=== PATIENT | female | born 1945 | race Caucasian/White ===

== ENCOUNTER 2020-06-07 15:34 | Outpatient (CLI) | payer OTHER, SELFPAY ==
--- NOTE | ~2020-06-07 | XR_ITS ---
EXAMINATION: XR chest 2V DATE: 06/07/2020 15:56 INDICATION: Cough and dyspnea. TECHNIQUE: Frontal and lateral views of the chest were obtained. COMPARISON: Chest 2 views 08/26/2019 FINDINGS: The chest demonstrates clear lungs without pneumonia, pleural effusion, or pneumothorax. Th e heart size is normal. There is a large hiatal hernia. Bilateral breast implants are noted. There ar e electrodes overlying the cervical and thoracic spine. There are changes of anterior fusion procedur e in lumbar spine. IMPRESSION: 1. Large hiatal hernia. Reviewed, dictated and finalized at location A. NT MASON IMPRESSION: 1. Large hiatal hernia.
== END 2020-06-07 15:35 | disposition home or self-care (01) ==
PROVIDERS: PCP Family Medicine; Visit Provider Family Medicine
DX: R06.09 Other forms of dyspnea (principal); R05 Cough; K44.9 Diaphragmatic hernia without obstruction or gangrene
CPT/HCPCS: 71046

== ENCOUNTER 2020-10-18 11:01 | Outpatient (CLI) | payer OTHER, MEDICARE, SELFPAY | END 2020-10-18 11:02 | disposition home or self-care (01) | LOC: ANHCOVIDVC 11:01 | PROVIDERS: PCP Family Medicine | DX: Z23 Encounter for immunization (principal) | CPT/HCPCS: 0001A; 91300 ==

== ENCOUNTER 2020-11-08 11:10 | Outpatient (CLI) | payer OTHER, MEDICARE, SELFPAY | END 2020-11-08 11:11 | disposition home or self-care (01) | LOC: ANHCOVIDVC 11:10 | PROVIDERS: PCP Family Medicine | DX: Z23 Encounter for immunization (principal) | CPT/HCPCS: 0002A; 91300 ==

== ENCOUNTER 2022-11-13 11:27 | Emergency (ER) | payer OTHER, SELFPAY ==
--- NOTE | ~2022-11-13 | XR_ITS ---
EXAMINATION: XR wrist LT min 3V DATE: 11/13/2022 11:58 INDICATION: Left wrist injury and pain. TECHNIQUE: 4 views of left wrist were obtained. COMPARISON: None. FINDINGS: Bone alignment is normal. No fracture. There is moderate osteoarthritis of triscaphe joint and severe osteoarthritis of first carpometacarpal joint. Osteopenia is noted. IMPRESSION: 1. Polyarticular osteoarthritis. Reviewed, dictated and finalized at location A.
[2022-11-13 11:30] VITALS: BP 136/78; PULSE 79; RESP 20; TEMP 36.2; O2SAT 98
--- NOTE | 2022-11-13 11:34 | ED.UPPEXIN ---
HPI - Extremity Injury (Upper) General Chief Complaint: Extremity Injury, Upper Stated Complaint: Left Wrist Injury Source: patient and RN notes reviewed History of Present Illness HPI narrative: 77-year-old female presents urgent care with complaints of left wrist pain. Patient states on Sunday she was getting off a couch when she pushed with her left hand and her knee popped. Patient denies any pain at that time. Patient states on Sunday she mopped the kitchen floor without issue but yesterday woke up with pain in her left wrist. Patient applied ice yesterday. Patient states she had some numbness and tingling to her left fingers with ice application. Denies any other injury. Patient denies any chest pain, shortness of breath, or vomiting. Some parts of this dictation were generated by voice recognition software and may contain typographical and/or grammatical inaccuracies. Related Data Home Medications Medication Instructions Recorded Confirmed aspirin 81 mg tablet,delayed 81 mg PO DAILY 08/26/19 09/12/22 release Allergies Allergy/AdvReac Type Severity Reaction Status Date / Time codeine Allergy Unknown Nausea Verified 09/12/22 13:07 meperidine Allergy Unknown Nausea and Verified 09/12/22 13:07 Vomiting MEPERIDINE HCL Allergy Severe NAUSEA, Uncoded 09/12/22 13:07 VOMITING Review of Systems Review of Systems: Pertinent positives and pertinent negatives per HPI. [facility]LY [facility] Past Medical History Medical History Anemia Asthma Depression GERD (gastroesophageal reflux disease) HLD (hyperlipidemia) HTN (hypertension) Hypothyroidism Major depression, recurrent Surgical History Surgical History H/O breast augmentation History of back surgery x 3 History of bladder suspension procedure History of hysterectomy Family History Family History Mother Family history of Alzheimer's disease Sibling Family history of diabetes mellitus in first degree relative Family history of coronary artery disease Family history of malignant neoplasm of esophagus Father Family history of coronary artery disease Social History Social History Years smoked: 2 Smoking status: Never smoker Tobacco type: cigarettes Second hand tobacco smoke exposure: No Smoking end date: 01/01/72 Alcohol intake: never Substance use: never Substance use type: does not use Living arrangements: with family Occupation/Education: retired Gender identity (if verbalized by the patient): Female Comments At the time of my signature, I reviewed and agree with the nursing past medical, surgical, social, and family history. There is no relevant family history pertinent to the patient complaint. Exam Narrative: GENERAL: This is a well-nourished, well-developed patient, in no apparent distress. HEAD: normocephalic, atraumatic. EYES: Sclera clear/white. Vision is grossly intact. EARS: External ears normal, auditory canals clear and without drainage. Hearing grossly intact. NOSE: External nose normal with no obvious nasal discharge, nares without redness, no rhinorrhea. THROAT: Mucous membranes moist, posterior pharynx clear. NECK: Neck supple, non-tender without lymphadenopathy, masses or thyromegaly. CARDIOVASCULAR: Regular rate RESPIRATORY: No respiratory distress GASTROINTESTINAL: Abdomen soft, non-tender, nondistended. Bowel sounds are active. No hepato-splenomegaly, or palpable masses. No guarding. SKIN: warm, intact with no suspicious lesions or rash, good texture and turgor. NEURO: awake, alert, and oriented to person, place and time. There were no obvious focal neurologic abnormalities. EXTREMITIES: Left wrist noted to be mildly edematous and slightly tender on the ulnar side. Course Course Level of C
== END 2022-11-13 12:27 | disposition home or self-care (01) ==
PROVIDERS: Emergency Provider Nurse Practitioner Family; PCP Family Medicine
DX: S63.502A Unspecified sprain of left wrist, initial encounter (principal); S66.912A Strain of unspecified muscle, fascia and tendon at wrist and hand level, left hand, initial encounter; X50.0XXA Overexertion from strenuous movement or load, initial encounter; J45.909 Unspecified asthma, uncomplicated; K21.9 Gastro-esophageal reflux disease without esophagitis; E78.5 Hyperlipidemia, unspecified; I10 Essential (primary) hypertension; E03.9 Hypothyroidism, unspecified; Z79.82 Long term (current) use of aspirin; Z87.891 Personal history of nicotine dependence
CPT/HCPCS: 73110; 99213; G0463

== ENCOUNTER 2024-09-14 13:25 | Emergency (ER) | payer OTHER, SELFPAY ==
--- OUTSIDE RECORDS SUMMARY | 2024-09-14 13:27 | XMS_ITS | Referral Summary ---
Author Organization [facility] Address [address] [place] [address] Care Team Providers Care Bail Attacher Name Role Phone Fran Vargas MD Primary Care Provider Nhi Rubio RN Unavailable Unavailable Edilia Corbin RN Unavailable Marylou vailable Allergies Active Allergy Reactions Criticality Noted Date Comments Meperidine Medications aspirin 81 mg tablet Take 1 tablet (81 mg total) by mouth daily Active venlafaxine (EFFEXOR) 75 mg tablet Take 75 mg by mouth 2 (two) times a day. Active hydroCHLOROthia zide (HYDRODIURIL) 25 mg tablet Take 1 tablet (25 mg total) by mouth daily Active levothyroxine sodium (TIROSINT) 25 mcg capsule Take 1 capsule (25 mcg total) by mouth applied exercise physiologist before breakfast Active metoprolol (LOPRESSOR) 50 mg tablet Take 1 tablet (50 mg total) by mouth daily Active omeprazole (PriLOSEC) 40 mg capsule Take 1 capsule (40 mg total) by mouth daily Active lovastatin (MEVACOR) 40 mg tablet Take 1 tablet (40 mg total) by mouth nightly Active amitriptyline (ELAVIL) 25 mg tablet Take 1 tablet (25 mg total) by mouth nightly Active celecoxib (CeleBREX) 100 mg capsuleIndicati ons:Osteoarthri tis Take 1 capsule (100 mg total) by mouth 2 (two) times a day. 60 capsule 2 9 Active FLUoxetine (PROzac) 20 mg capsule Take by mouth daily 2 Active predniSONE (DELTASONE) 10 mg tabletIndicatio ns:Swelling of right hand Take 4 tablets days 1 & 2, take 3 tablets days 3 & 4, take 2 tablets days 5 & 6, take 1 tablet days 7-10 22 tablet 4 Active Active Problems Problem Noted Date Diagnosed Date Hip pain, acute, right 06/03/2019 Myalgia 08/28/2018 Spinal stenosis of lumbar re gion with neurogenic claudication 07/11/2017 Lumbosacral spondylosis without myelopathy 07/11 Postlaminectomy syndrome, lumbar 07/11/2017 Radiculopathy, lumbosacral region 07/11/2017 Thoracic spine pain 07/11/2017 Chronic pain syndrome 04/27/2017 Somatic symptom disorder, pe rsistent, severe, with predominant pain 04/27/2017 Social History Tobacco Use Types Packs/Day Years Used Date Smoking Tobacco: Never Smokeless Tobacco: Never Alcohol Use Standard Drinks/Week Comments No 0 (1 standard drink = 0.6 oz pur e alcohol) Comments No Sex and Gender Information Value Date Recorded Sex Assigned at Not on file 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 Gender Identity Not on file Sexual Orientation Not on file Last Filed Vital Signs Vital Sign Reading Time Taken Comments Blood Pressure 128/66 05/10/2024 4:00 PM CDT Pulse 82 05/10/2024 4:00 PM CDT Temperature 37.2 C (98.9 F) 05/10/2024 4:00 PM CDT Respiratory Rate 18 05/10/2024 4:00 PM CDT Oxygen Saturation 96% 05/10/2024 4:00 PM CDT Inhaled Oxygen Concentration - - Weight 85.5 kg (188 lb 6.4 oz) 05/10/2024 4:00 P M CDT Height 167.6 cm (5' 6 ) 06/03/2019 1:05 PM CDT Body Mass Index 30.41 06/03/2019 1:05 PM CDT Plan of Treatment Not on file Medical Devices Implanted Type Area Tracing Lathe Set Up Operator Device Identifier Shelf Expiration Date Model / Serial / Lot [employer] 1192 Gunter-Lock Gueydan Lead - [id number] Implanted:Qty: 2 on 04/11/2018 by Sathish Winslow MD at [facility] N/A: Back [employer] 09/17/2019 1192 / / [id number] [employer] 3186ans Octrode 60cm 8 Electrode Lead Percutaneous Kit Neurostimulator - [id number] - [id number] Implanted:Qty: 1 on 04/11/2018 by Sathish Winslow MD at [facility] N/A: Back [employer] 12/19/2019 [id number] / [id number] / [employer] 3186ans Octrode 60cm 8 Electrode Lead Percutaneous Kit Neurostimulator - [id number] - [id number] Implanted:Qty: 1 on 04/11/2018 by Sathish Winslow MD at [facility] N/A: Back [employer] 12/19/2019 [id number] / [id number] / Generator Neurostimulator 4.95cm X 5.55cm Proclaim Elite Implanted:Qty: 1 on 04/11/2018 by Sathish Winslow MD at [facility] N/A: Back [employer] [id number] 12/07/2019 [id number] LSYS / [id number] / Insurance [facility] Care Teams Bail Attacher Relationship Specialty Start Date End Date Fran Vargas MD [address] [facility] [address] [place] [address] PCP - General Family Medicine 07/11/17 Nhi Rubio, RN Registered Nurse 07/11/17 Edilia Corbin, RN Registered Nurse 08/28/18
--- OUTSIDE RECORDS SUMMARY | 2024-09-14 13:27 | XMS_ITS | Clinical Summary ---
Author Organization [facility] Address [address] [place] [address] Phone Care Team Providers Care Flight Steward Name Role Phone Fran Vargas MD Primary Care Provider Active Problems Problem Noted Date Diagnosed Date Chronic pain syndrome 04/27/2017 Somatic symptom disorder, pe rsistent, severe, with predominant pain 04/27/2017 Social History Tobacco Use Types Packs/Day Years Used Date Smoking Tobacco: Never Assessed Comments Unknown Sex and Gender Information Value Date Recorded Sex Assigned at Not on file Legal Sex Female 7:52 PM CDT Gender Identity Not on file Sexual Orientation Not on file Plan of Treatment Health Maintenance Due Date Last Done Comments DEXA Bone Density 1945 Hepatitis C Virus (HCV) Screening 1945 TdaP Immunization 1945 Pneumococcal Immunization (5 0+ years) (1 of 1 - PCV) 1996 Zoster Immunization (1 of 2) 1996 Respiratory Syncytial Virus (RSV) Immunization (Adult) (1 - 1-dose 75+ series) 2021 Influenza Immunization (#1) 2024 SARS-COV-2 Immunization ( season) 2024 Hepatitis B Immunization Aged Out No longer eligible based on patient's age to complete this topic Meningococcal Immunization (ACWY) Aged Out No longer eligible based on patient's age to complete this topic Rotavirus Immunization Aged Out No lo nger eligible based on patient's age to complete this topic Insurance MEDICARE C [employer] Care Teams Flight Steward Relationship Specialty Start Date End Date Fran Vargas MD [address] [facility] [address] [place] [address] PCP - General Family Medicine 03/29/17
--- OUTSIDE RECORDS SUMMARY | 2024-09-14 13:27 | XMS_ITS | Clinical Summary ---
Author Organization [facility] Address [address] [place] [address] Care Team Providers Care Spiral Winding Machine Helper Name Role Phone Fran Vargas MD Primary [...] 1 capsule (25 mcg total) by mouth enterprise software developer before breakfast Active metoprolol (LOPRESSOR) 50 mg [...] pe rsistent, severe, with predominant pain 04/27/2017 Surgical History Surgery Date Site/Laterality Comments BACK SURGERY HYSTERECTOMY SPINE SURGERY lumbar fusion APPENDECTOMY COLONOSCOPY DILATION AND CURETTAGE OF UTERUS x2 MULTIPLE TOOTH EXTRACTIONS to prepare for dentures BLADDER SURGERY mesh for prolapse Medical History Medical History Date Comments HTN (hypertension) HLD (hyperlipidemia) Asthma Arthritis Depression Hypothyroidism GERD (gastroesophageal reflux disease) PONV (postoperative nausea and vomiting) Chronic back pain Family History Medical History Relation Name Comments Diabetes Brother 1 Binh Heart disease Brother 1 Binh Obesity Brother 1 Binh Diabetes Brother 2 Miguel Angel Atrial fibrillation Brother 3 Champ Cancer Brother 4 Miguel Ángel esophageal canc er Heart disease Father Alzheimer's disease Mother Arthritis Sister Atrial fibrillation Sister Fibromyalgia Sister Relation Name Status Comments Brother 1 Binh Brother 2 [place] Alive Brother 3 Champ Alive Brother 4 Miguel Ángel Father Mother Sister Alive Social History Tobacco Use Types Packs/Day Years Used Date Smoking Tobacco: Never Smokeless Tobacco: Never Alcohol Use Standard Drinks/Week Comments No 0 (1 standard drink = 0.6 oz pur e alcohol) Comments No Sex and Gender Information Value Date Recorded Sex Assigned at Not on file 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 Gender Identity Not on file Sexual Orientation Not on file Obstetrics History Last Filed Vital Signs Vital Sign Reading [...] 06/03/2019 1:05 PM CDT Plan of Treatment Health Maintenance Due Date Last Done Comments Depression Screening 1945 Hepatitis C Screening 1945 Osteoporosis Screening-Bone Density Scan 1945 Hepatitis B Screening 1964 Zoster Vaccine (1 of 2) 1996 Pneumococcal vaccine 65+ (1 of 1 - PCV) 2011 Well Visit 65+ 2011 Fall Risk Assessment 02/15/2023 02/15/2022 Influenza Vaccine (#1) 2024 DTaP/Tdap/Td Vaccine (2 - Td or Tdap) 08/15/202405/2015 Medical Devices Implanted Type Area Project Admin Device Identifier Shelf Expiration Date Model / Serial / Lot [employer] 1192 Gunter-Lock [place] Lead - [id number] Implanted:Qty: 2 on 04/11/2018 by Sathish Winslow MD at [facility] N/A: Back [employer] 09/17/2019 1192 / / [id number] [employer] 3186ans Octrode 60cm 8 Electrode Lead Percutaneous Kit Neurostimulator - [id number] - [id number] Implanted:Qty: 1 on 04/11/2018 by Sathish Winslow MD at [facility] N/A: Back [employer] 12/19/2019 [id number] / [id number] / [employer] 3186ans Octrode 60cm 8 Electrode Lead Percutaneous Kit Neurostimulator - [id number] - [id number] Implanted:Qty: 1 on 04/11/2018 by Sathish Winslow MD at [facility] N/A: Back [employer] 12/19/2019 [id number] / [id number] / Generator Neurostimulator 4.95cm X 5.55cm [employer] Elite Implanted:Qty: 1 on 04/11/2018 by Sathish Winslow MD at [facility] N/A: Back [employer] [id number] 12/07/2019 3660CONTR LSYS / [id number] / Insurance [facility] Member Subscriber Plan / Payer (Ef fective 2011-Present) Name:ElizondoElaine Chastity Relation to Subscriber:Self Name:Elaine Elizondo Payer ID:[id number] (NAIC) Type:MEDICARE RISK OTHER Address: [address] [place] [id number] [facility] Member Subscriber Plan / Payer (Ef fective 2011-Present) Name:Elaine Elizondo Relation to Subscriber:Self Name:Elaine Elizondo Payer ID:[id number] (NAIC) Type:MEDICARE RISK OTHER Address: [address] [place] [phone] Care Teams Spiral Winding Machine Helper Relationship Specialty Start Date End Date Fran Vargas MD [address] [facility] [address] [place] [address] PCP - General Family Medicine 07/11/17 Nhi Rubio, RN Registered Nurse 07/11/17 Edilia Corbin, RN Registered Nurse 08/28/18
[2024-09-14 13:30] VITALS: BP 128/65; PULSE 121; RESP 20; TEMP 36.8; O2SAT 97
--- NOTE | 2024-09-14 13:31 | ED.URI ---
HPI - URI/Sore Throat General Chief Complaint: Upper Respiratory Infection Stated Complaint: flu symptoms Time Seen by Provider: 09/14/24 13:31 Source: patient, RN notes reviewed and old records reviewed Mode of arrival: ambulatory Limitations: no limitations History of Present Illness HPI Narrative: patient presents accompanied by her daughter who is also sick. Patient reports that she has been feeling unwell for couple days with flu-like symptoms. She states that she has not taken any medication for her symptoms because she did not feel like getting out of bed. She also reports that she did not take any of her routine medications for the same reason. She is not in any distress. Related Data Home Medications ?Medication ?Instructions ?Recorded ?Confirmed ?Last Taken ?Type aspirin 81 mg tablet,delayed 81 mg PO DAILY 08/26/19 09/03/24 Unknown History release Allergies Allergy/AdvReac Type Severity Reaction Status Date / Time codeine Allergy Unknown Nausea Verified 09/14/24 13:39 meperidine Allergy Unknown Nausea and Verified 09/14/24 13:39 Vomiting MEPERIDINE HCL Allergy Severe NAUSEA, Uncoded 08/22/24 08:47 VOMITING Review of Systems Review of Systems: All systems reviewed & are unremarkable except as noted in HPI and below Constitutional: Constitutional: Reports no additional constitutional complaints, Reports body ache(s), Reports chills, Reports fever(s), Reports headache(s) and Reports lethargy ENT: Reports system reviewed and no additional complaints, except as documented, Reports nasal congestion and Reports nasal discharge Cardiovascular: Cardiovascular: Reports no additional cardiovascular complaints Respiratory: Respiratory: Reports no additional respiratory complaints and Reports cough Gastrointestinal: Gastrointestinal: Reports no additional gastrointestinal complaints [facility] Past Medical History Medical History Major depression, recurrent Anemia Depression Asthma HLD (hyperlipidemia) GERD (gastroesophageal reflux disease) Hypothyroidism HTN (hypertension) Surgical History Surgical History History of bladder suspension procedure History of back surgery x 3 H/O breast augmentation History of hysterectomy Family History Family History Mother Family history of Alzheimer's disease Sibling Family history of diabetes mellitus in first degree relative Family history of coronary artery disease Family history of malignant neoplasm of esophagus Father Family history of coronary artery disease Social History Social History Years smoked: 2 Smoking status: Never smoker Tobacco type: cigarettes Second hand tobacco smoke exposure: No Smoking end date: 08/06/71 Alcohol intake: never Substance use: never Substance use type: does not use Living arrangements: with family Occupation/Education: retired Gender identity (if verbalized by the patient): Female Comments At the time of my signature, I reviewed and agree with the nursing past medical, surgical, social, and family history. There is no relevant family history pertinent to the patient complaint. Exam Const: General: cooperative, no acute distress, alert and awake Orientation/consciousness: oriented to person, oriented to place and oriented to time HENMT: Head: normal to inspection Ears: TM's normal bilaterally Resp: Effort & Inspection: normal respiratory effort and able to speak in complete sentences Auscultation: clear to auscultation bilaterally, no crackles, no rales, no rhonchi and no wheezes Cardio: Palpation: normal PMI Rate: regular rate Rhythm: regular rhythm Heart sounds: S1 normal heart sound present and S2 normal heart sound present Neuro: General: oriented to person, oriented to place and oriented to time Cranial nerves: Yes CN's II-XII intact bilaterally Psych: Appearance: grossly normal Thought process: Normal thought process present Insight: Good insight present (Psych) Judgement: Good judgement present (Psych) Course Course Level of Care: Express Care Visit Vital Signs Vital signs: Reviewed MDM - URI/Sore Throat MDM Narrative Medical decision making narrative: Positive influenza. Patient has not been treating her symptoms. Tamiflu was prescribed. Patient is nontoxic appearing today, stable for discharge home. The importance of taking all medications as prescribed was discussed with patient at length. Emergency department precautions discussed as well. Discharge instructions reviewed with patient, as well as provided in writing per nursing staff. The instructions also include specific and strict return/GO TO THE ER as well as f/u information. All questions have been answered, and the patient deny any further questions with discharge and discharge plan. Some parts of this dictation were generated by voice recognition software and may contain typographical and/or grammatical inaccuracies. Differential Diagnosis Differential diagnosis: Likely upper respiratory infection, otitis media, viral infection and influenza Medical Records Attestation: I reviewed the patient's medical records. Lab Data Attestation: I reviewed the patient's lab results. Discharge Plan Discharge Clinical Impression: Influenza Patient Disposition: Home, Self-Care Condition: Stable Instructions: Antibiotic Form, Influenza (ED) Additional Instructions: take medications as prescribed. Follow-up with primary care provider. Emergency department for new or worse symptoms Patient Language: Spanish Prescriptions: New oseltamivir [Tamiflu] 75 mg capsule 75 mg PO Q12H 5 Days Qty: 10 0RF No Action aspirin 81 mg tablet,delayed release (DR/EC) 81 mg PO DAILY ferrous sulfate 325 mg (65 mg iron) tablet 325 mg PO DAILY Qty: 90 1RF fluticasone propion-salmeterol [Wixela Inhub] 500-50 mcg/dose blister with device 1 inh inhalation Q12H Qty: 60 0RF albuterol sulfate [ProAir HFA] 90 mcg/actuation HFA aerosol inhaler 1 puff INHALATION Q4H PRN (Reason: shortness of breath or wheezing) Qty: 8 2RF levothyroxine 25 mcg tablet 25 mcg PO DAILY Qty: 90 2RF hydrochlorothiazide 25 mg tablet See Rx Instructions .ROUTE .COMPLEX Qty: 90 2RF Dose Instruction: TAKE 1 TABLET BY MOUTH EVERY DAY Rx Instructions: TAKE 1 TABLET BY MOUTH EVERY DAY lovastatin 40 mg tablet 40 mg PO QPM Qty: 90 2RF omeprazole 40 mg capsule,delayed release(DR/EC) 40 mg PO DAILY Qty: 90 3RF fluoxetine [Prozac] 20 mg capsule 20 mg PO DAILY Qty: 90 2RF metoprolol succinate 50 mg tablet extended release 24 hr See Rx Instructions .ROUTE .COMPLEX Qty: 90 2RF Dose Instruction: TAKE ONE TABLET BY MOUTH ONCE DAILY Rx Instructions: TAKE ONE TABLET BY MOUTH ONCE DAILY amitriptyline 50 mg tablet 50 mg PO DAILY Qty: 90 2RF Follow-up/Referrals: Fran Vargas MD [Primary Care Provider] - 1 Week Time of Disposition: 14:01
[2024-09-14 14:00] LABS: EDCOVIDSCREEN Negative (Negative); EDINFLUASCREEN Positive (Negative); EDINFLUBSCREEN Negative (Negative)
== END 2024-09-14 14:06 | disposition home or self-care (01) ==
PROVIDERS: Emergency Provider Nurse Practitioner Family; PCP Family Medicine
DX: J10.1 Influenza due to other identified influenza virus with other respiratory manifestations (principal); Z20.822 Contact with and (suspected) exposure to COVID-19; I10 Essential (primary) hypertension; E03.9 Hypothyroidism, unspecified; E78.5 Hyperlipidemia, unspecified; K21.9 Gastro-esophageal reflux disease without esophagitis; J45.909 Unspecified asthma, uncomplicated; D64.9 Anemia, unspecified; F33.9 Major depressive disorder, recurrent, unspecified; Z79.82 Long term (current) use of aspirin; R69 Illness, unspecified; Z87.891 Personal history of nicotine dependence
CPT/HCPCS: 87426; 87804; 99213; G0463

== ENCOUNTER 2025-06-18 13:45 | Outpatient (CLI) | payer OTHER, SELFPAY ==
--- NOTE | ~2025-06-18 | US_ITS ---
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 Findings: Correlating with the palpable area there is a complex focus measuring 1.7 x 0.5 x 1.4 cm with a prominent hilum, no abnormal flow. Incidental note made of multiple thyroid nodules incompletely characterized. IMPRESSION: 1. Nonspecific prominent lymph node. Follow-up suggested to assess stability or resolution. 2. Thyroid nodules. Thyroid ultrasound recommended Reviewed, dictated and finalized at location P. P METAL PROCESSING WORKER
--- NOTE | 2025-06-18 14:15 | ECHO_ITS ---
Patient Info Name: Elaine Elizondo Age: 79 years : 1945 Gender: Female Ht: 67 in Wt: 181 lbs BSA: 1.99 m2 HR: 75 bpm BP: 101 / 73 mmHg Technical Quality: Good Exam Date: 06/18/2025 2:21 PM Patient Status: O Admit Date: 06/18/2025 Exam Type: CA echo doppler color flow Complete two-dimensional, color flow and Doppler transthoracic echocardiogram is performed. Staff Referring Physician: Alexis Haywood Lead Pl Sql Developer: Saadia Matias Attending Provider: Alexis Haywood Summary 1. Complete two-dimensional, color flow and Doppler transthoracic echocardiogram is performed. 2. Left ventricular chamber dimension is normal. 3. Left ventricular systolic function is normal, estimated at 60-65. 4. There is mild concentric increased left ventricular wall thickness. 5. The left ventricular diastolic function is abnormal. 6. E/e' 13 is mildly elevated. 7. There is mild tricuspid valve regurgitation. 8. No pulmonary hypertension, estimated pulmonary arterial systolic pressure is 21 mmHg. Left Ventricle E/e' 13 is mildly elevated. Left ventricular chamber dimension is normal. Left ventricular systolic function is normal, estimated at 60-65. There is mild concentric increased left ventricular wall thickness. The left ventricular diastolic function is abnormal. Right Ventricle Right ventricular chamber dimension is normal. Right ventricular systolic function is normal and with normal TAPSE 2.2 cm. Left Atria Left atrial chamber dimension is normal. Right Atria Right atrial chamber dimension is normal. Aortic Valve The aortic valve is trileaflet. There is no aortic valve stenosis. There is no aortic valve regurgitation. Pulmonic Valve There is no pulmonic regurgitation. Mitral Valve There is no mitral valve stenosis. There is no mitral valve regurgitation. Tricuspid Valve There is mild tricuspid valve regurgitation. No pulmonary hypertension, estimated pulmonary arterial systolic pressure is 21 mmHg. Pericardium/Pleural There is no pericardial effusion. Inferior Vena Cava Normal inferior vena cava with >50% collapse upon inspiration consistent with normal right atrial pressure, 5 mmHg. Aorta The aortic root size at the sinus of Valsalva is normal. Left Ventricular Outflow Tract Name Value Normal LVOT 2D LVOT Diameter 2.0 cm LVOT Doppler LVOT Peak Velocity 119 cm/s LVOT Peak Gradient 6 mmHg LVOT Mean Gradient 3 mmHg LVOT VTI 29 cm LVOT Stroke Volume 92 ml LVOT CO 6.8 l/min LVOT CI 3.4 l/min/m2 Pulmonic Valve Name Value Normal RVOT Doppler RVOT Peak Velocity 97 cm/s RVOT Peak Gradient 4 mmHg PV Doppler PV Peak Velocity 152 cm/s PV Peak Gradient 9 mmHg Mitral Valve Name Value Normal MV Diastolic Function MV E Peak Velocity 95 cm/s MV A Peak Velocity 89 cm/s MV E/A 1.1 MV Decel Time (PW) 186 ms MV Annular TDI MV E/e' (Septal) 14.0 MV E/e' (Lateral) 13.1 MV E/e' (Average) 13.5 Tricuspid Valve Name Value Normal TV Regurgitation Doppler TR Peak Velocity 201 cm/s TR Peak Gradient 16 mmHg Estimated PAP/RSVP RA Pressure 5 mmHg <=5 PA Systolic Pressure 21 mmHg <36 RV Systolic Pressure 21 mmHg <36 Aortic Valve Name Value Normal AV Doppler AV Peak Velocity 168 cm/s AV Peak Gradient 11 mmHg AV Area (Cont Eq Jos) 2.3 cm2 AV DI (Jos) 0.71 AV Regurgitation 2D LVOT Area 3.2 cm2 Ventricles Name Value Normal LV Dimensions 2D/MM IVS Diastolic Thickness (2D) 1.2 cm 0.6-1.0 LVID Diastole (2D) 4.3 cm 3.8-5.2 LVIW Diastolic Thickness (2D) 1.0 cm 0.6-0.9 LVID Systole (2D) 2.6 cm 2.2-3.5 LVOT Diameter 2.0 cm LV Mass (2D Cubed) 164.98 g 67.00-162.00 LV Mass Index (2D Cubed) 83 g/m2 43-95 Relative Wall Thickness (2D) 0.49 <=0.42 LV Fractional Shortening/Ejection Fraction 2D/MM LV Fractional Shortening (2D) 39 % 27-45 LV EF (2D Teichholz) 70 % LV Diastolic Volume (4C MOD) 105 ml LV EF (4C MOD) 67 % LV Diastolic Volume (2C MOD) 99 ml LV EF (2C MOD) 64 % LV Diastolic Volume (BP MOD) 103 ml 46-106 LV Diastolic Volume Index (BP MOD) 52 ml/m2 29-61 LV Systolic Volume (BP MOD) 35 ml 14-42 LV Systolic Volume Index (BP MOD) 18 ml/m2 8-24 LV EF (BP MOD) 66 % 54-74 LV Diastolic Length (4C) 8.1 cm LV Systolic Length (4C) 6.6 cm LV Stroke Volume (4C MOD) 70 ml Atria Name Value Normal LA Dimensions LA Volume (4C A-L) 56 ml LA Volume (BP A-L) 45 ml RA Dimensions RA Systolic Major Durham Length (4C) 6.0 cm 2.2-2.8 RA Area (4C) 18.5 cm2 <=18.0 Report Signatures
--- OUTSIDE RECORDS SUMMARY | 2025-06-18 14:23 | XMS_ITS | Clinical Summary ---
Author Organization [facility] Address [address] [place] [address] Phone Care Team Providers Care Division Superintendent Name Role Phone Fran Vargas MD Primary [...] 1-dose 75+ series) 2021 Influenza Immunization (#1) 2025 SARS-COV-2 Immunization ( - 2024- season) 2025 Hepatitis B Immunization Aged Out No longer eligible based on patient's age to complete this topic Human Papillomavirus (HPV) Immunization Aged Out No longer eligible b ased on patient's age to complete this topic Meningococcal Immunization (ACWY) Aged Out No longer eligible based on patient's age to complete this topic Rotavirus Immunization Aged Out No lo nger eligible based on patient's age to complete this topic Insurance MEDICARE C E[employer] Care Teams Division Superintendent Relationship Specialty Start Date End Date Fran Vargas MD [address] [place] [address] PCP - General Family Medicine 03/29/17
--- OUTSIDE RECORDS SUMMARY | 2025-06-18 14:23 | XMS_ITS | Clinical Summary ---
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 Active hydroCHLOROthi azide (HYDRODIURIL) 25 mg tablet Take 1 tablet (25 mg total) by mouth daily Active levothyroxine sodium (TIROSINT) 25 mcg capsule Take 1 capsule (25 mcg total) by mouth sagger maker before breakfast Active metoprolol (LOPRESSOR) 50 mg [...] mouth nightly Active celecoxib (CeleBREX) 100 mg capsuleIndicat ions:Osteoarth ritis Take 1 capsule (100 mg total) by mouth 2 (two) times a day. 60 capsule 2 08/28/19 19 Active FLUoxetine (PROzac) 20 mg capsule Take by mouth daily 01/17/20 22 Active predniSONE (DELTASONE) 10 mg tabletIndicati ons:Swelling of right hand Take 4 tablets days 1 & 2, take 3 tablets days 3 & 4, take 2 tablets days 5 & 6, take 1 tablet days 7-10 22 tablet 05/10/20 24 025 Discontinued predniSONE (DELTASONE) 20 mg tabletIndicati ons:Muscle strain of right lower leg, initial encounter Take 2 tablets (40 mg) by mouth daily for 5 days 10 tablet 06/06/20 25 025 Active Problems Problem Noted Date Diagnosed Date Hip pain, acute, right 06/03/2019 Myalgia 08/28/2018 Spinal stenosis of lumbar re gion with neurogenic claudication 07/11/2017 Lumbosacral spondylosis without myelopathy 07/11 Postlaminectomy syndrome, lumbar 07/11/2017 Radiculopathy, lumbosacral region 07/11/2017 Thoracic spine pain 07/11/2017 Chronic pain syndrome 04/27/2017 Somatic symptom disorder, pe rsistent, severe, with predominant pain 04/27/2017 Encounters Date Type Department Care Team Description 06/06/2025 4:45 PM CDT Office Visit [facility] [address] [place] [address] Alivia Oneill, GRACE Muscle strain of right lower leg, initial encounter (Primary Dx) from Last 3 Months Surgical History Surgery Date Site/Laterality Comments BACK [...] Obesity Brother 1 Binh Diabetes Brother 2 Fillmore Atrial fibrillation Brother 3 Champ Cancer Brother 4 Miguel Ángel esophageal canc er Heart disease Father Alzheimer's disease Mother Arthritis Sister Atrial fibrillation Sister Fibromyalgia Sister Relation Name Status Comments Brother 1 Binh Brother 2 Miguel Angel Alive Brother 3 Champ Alive Brother 4 [...] on file 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 Gender Identity Not on file Sexual Orientation Not on file Last Filed Vital Signs Vital Sign Reading Time Taken Comments Blood Pressure 110/60 06/06/2025 4:39 PM CDT Pulse 76 06/06/2025 4:39 PM CDT Temperature 36.8 C (98.3 F) 06/06/2025 4:39 PM CDT Respiratory Rate 16 06/06/2025 4:39 PM CDT Oxygen Saturation 98% 06/06/2025 4:39 PM CDT Inhaled Oxygen Concentration - - Weight 82.1 kg (181 lb) 06/06/2025 4:39 PM CDT Height 170.2 cm (5' 7) 06/06/2025 4:39 PM CDT Body Mass Index 28.35 06/06/2025 4:39 PM CDT Plan of Treatment Health Maintenance Due Date Last Done Comments Depression Screening 1945 Hepatitis C Screening 1945 Osteoporosis Screening-Bone Density Scan 1945 Hepatitis B Screening 1964 Zoster Vaccine (1 of 2) 1996 Well Visit 65+ 2011 Pneumococcal vaccine 65+ (2 of 2 - PCV) 09/01/2012 0 09/01/2011 Fall Risk Assessment 02/15/2023 02/15/2022 DTaP/Tdap/Td Vaccine (2 - Td or Tdap) 08/15/202405/2015 Covid-19 Vaccine (3 - season) 04/06/202512/2020, 10/18/2020 Influenza Vaccine (#1) 2025 Medical Devices Implanted Type Area Machine Silver Stripper Device Identifier Shelf Expiration Date Model / Serial / Lot [employer] 1192 Gunter-Lock [employer] Lead - [id number] Implanted:Qty: 2 on 04/11/2018 by Sathish Winslow MD at [facility] N/A: Back [employer] 09/17/2019 1192 / / [id number] [employer] [id number] Octrode 60cm 8 Electrode Lead Percutaneous Kit Neurostimulator - [id number] - [id number] Implanted:Qty: 1 on 04/11/2018 by Sathish Winslow MD at [facility] N/A: Back [employer] 12/19/2019 [id number] / [id number] / [employer] [id number] Octrode 60cm 8 Electrode Lead Percutaneous Kit Neurostimulator - [id number] - [id number] Implanted:Qty: 1 on 04/11/2018 by Sathish Winslow MD at [facility] N/A: Back [employer] 12/19/2019 [id number] / [id number] / Generator Neurostimulator 4.95cm X 5.55cm [employer] Elite Implanted:Qty: 1 on 04/11/2018 by Sathish Winslow MD at [facility] N/A: Back [employer] [id number] 12/07/2019 [id number] LSYS / [id number] / Insurance [facility] Care Teams Wheelchair Driver Relationship Specialty Start Date End Date Fran Vargas MD [address] [facility] [address] [place] [address] PCP - General Family Medicine 07/11/17 Nhi Rubio, RN Registered Nurse 07/11/17 Edilia Corbin, RN Registered Nurse 08/28/18
--- OUTSIDE RECORDS SUMMARY | 2025-06-18 14:23 | XMS_ITS | Patient Health Record ---
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 Name Role Phone Fran Vargas MD Primary Care Provider Stephany Osei Unavailable [phone] Allergies Allergen (clinical drug ingredient) Drug/Non Drug Allergy documented on EMR Reaction Allergy Type Onset Date Status codeine Codeine Unknown Drug Allergy Active meperidine Meperidine Unknown Drug Allergy Activ e Reason For Referral No Information Medications Medication SIG (Take, Route, Frequency, Duration) Notes Start Date End Date Status FLUoxetine HCl 20 MG Capsule 1 capsule Oral Once a day; Duration: 90 days Active buPROPion HCl ER (XL) 150 MG Tablet Extended Release 24 Hour 1 tablet in the morning Orally Once a day; Duration: 30 days Active Metoprolol Succinate ER 50 MG Tablet Extended Release 24 Hour Oral Active Amitriptyline HCl 50 MG Tablet Oral Active Levothyroxine Sodium 25 MCG Tablet Oral Active Omeprazole 40 MG Capsule Delayed Release Oral Active hydroCHLOROthiazide 25 MG Tablet Oral Active ProAir HFA 108 (90 Base) MCG/ACT Aerosol Solution Inhalation Act antoine WIXELA INHUB 500 MCG-50 MCG/DOSE POWDER FOR INHALATION *Reorder from [employer] for eRx and Interaction Alerts* Active Lovastatin 40 MG Tablet Oral Active Social History Tobacco Use: Social History Observation Description Date Details (start date - stop date) Never Smoker NA - NA Sex Assigned At : Social History Observation Description Sex Assigned At Female Social History Miscellaneous: Social Info Question Answer Notes Advance Care Planning Advance Directive FULL CODE Safety issues: Are there any firearms in the house? No Social History Social Info Question Answer Notes Household: Marital Status: Number of Adults in household: 2 Number of Children in Household: 1 Level of Education: Professional Schools/Masters /PhD Drug/Alcohol: Social Info Question Answer Notes AUDIT-C (Standard) Did you have a drink containing alcohol in the past year? No Tobacco Use: Social Info Question Answer Notes Tobacco Control (Standard) Tobacco use: Nonsmoker Additional Details Category Social Info Options Details Miscellaneous: Occupation: Retired Migrated Social History Migrated Social History Tobacco Years: Never smoker 10/30/2023 Section Notes: Does not have AD or living w ill Does not have AD or living w ill Problems Problem Type SNOMED Code ICD Code Onset Dates Problem Status W/U Status Risk Notes Problem Obsessive-compul sive disorder (318961376) Hoarding disorder (F42.3) Active confirmed Problem Generalized anxiety disorder (23573548) IWONA (generalized anxiety disorder) (F41.1) Active confirmed Problem Moderate recurrent major depression (59017290) MDD (major depressive disorder), recurrent episode, moderate (F33.1) Active confirmed Vital Signs Heart Rate 80 /min 01/06/2025 Height-cm 170.18 cm 01/06/2025 Blood pressure diastolic 74 mm Hg 01/06/2025 Weight-kg 84.37 kg 01/06/2025 Height 67 in 01/06/2025 Blood pressure systolic 126 mm Hg 01/06/2025 Weight 186 lbs 01/06/2025 BMI 29.13 kg/m2 01/06/2025 Encounters Encounter Location Date Provider Diagnosis [facility] [address] [place] [address] [address] 12/01/2024 Stephany Sharif MDD (major depressiv e disorder), recurrent episode, moderate F33.1 ; IWONA (generalized anxiety disorder) F41.1 ; Hoarding disorder F42.3 ; Encounter for screening for depression Z13.31 and Benign essential HTN I10 [facility] [address] 01/06/2025 Stephany Sharif IWONA (generalized anxiety disorder) F41.1 ; MDD (major depressive disorder), recurrent episode, moderate F33.1 ; Hoarding disorder F42.3 ; Benign essential HTN I10 ; Encounter for screening for depression Z13.31 and Encounter for screening for cardiovascular disorders Z13.6 [facility] boarding pass [facility] [address] [place] [address] 01/13/2025 Stephany Sharif MDD (major depressiv e disorder), recurrent episode, moderate F33.1 [facility] boarding pass [facility] [address] [place] [address] 02/27/2025 Stephany Sharif MDD (major depressiv e disorder), recurrent episode, moderate F33.1 Assessments Encounter Date Diagnosis (ICD Code) Assessment Notes Treatment Notes Treatment Clinical Notes Section Notes 12/01/2024 IWONA (generalized anxiety disorder) (ICD-10 - F41.1) 12/01/2024 MDD (major depressive disorder), recurrent episode, moderate (ICD-10 - F33.1) Common side effects of Wellbutrin include insomnia, increased anxiety, nausea, dizziness, decreased appetite, restlessness, irritability and anger, increased sweating or hot flashes, tremors, joint pain. Wellbutrin is not recommended in individuals with a history of seizures. If side effects persist, please contact the office. 01/06/2025 IWONA (generalized anxiety disorder) (ICD-10 - F41.1) SSRI/SNRI side effects discussed including but not limited to, gastric upset, nausea, vomiting, diarrhea and/or constipation, weight changes, sexual side effects including loss of libido, increased suicidal thoughts/behavi ors in children and young adults, and serotonin syndrome. 01/06/2025 MDD (major depressive disorder), recurrent episode, moderate (ICD-10 - F33.1) Common side effects of Wellbutrin include insomnia, increased anxiety, nausea, dizziness, decreased appetite, restlessness, irritability and anger, increased sweating or hot flashes, tremors, joint pain. Wellbutrin is not recommended in individuals with a history of seizures. If side effects persist, please contact the office. 01/13/2025 MDD (major depressive disorder), recurrent episode, moderate (ICD-10 - F33.1) 02/27/2025 MDD (major depressive disorder), recurrent episode, moderate (ICD-10 - F33.1) 12/01/2024 Hoarding disorder (ICD-10 - F42.3) 01/06/2025 Hoarding disorder (ICD-10 - F42.3) 12/01/2024 Encounter for screening for depression (ICD-10 - Z13.31) 01/06/2025 Benign essential HTN (ICD-10 - I10) 01/06/2025 Encounter for screening for depression (ICD-10 - Z13.31) 12/01/2024 Benign essential HTN (ICD-10 - I10) 01/06/2025 Encounter for screening for cardiovascular disorders (ICD-10 - Z13.6) 12/01/2024 Other Start Wellbutrin 150mg daily for mood, motivation, energy Continue fluoxetine 20mg daily for now Patient educated on all medications including potential benefits, side effects, risks. Educated on proper dosing schedule and importance of compliance. SLUMS completed today -Assessment and treatment plan reviewed with patient. -Compliance with treatment plan importance discussed. -Discussed the risks/benefits of this medication -Discussed medication side effects. -Contact office if symptoms worsen. -Discussed that it can take up to 6-8 weeks to see full therapeutic effects of psychotropic medications. -Crisis prevention hotline 988. 01/06/2025 Other Increase Wellbutrin to 300mg daily for mood, motivation Patient educated on all medications including potential benefits, side effects, risks. Educated on proper dosing schedule and importance of compliance. -Assessment and treatment plan reviewed with patient. -Compliance with treatment plan importance discussed. -Discussed the risks/benefits of this medication -Discussed medication side effects. -Contact office if symptoms worsen. -Discussed that it can take up to 6-8 weeks to see full therapeutic effects of psychotropic medications. -Crisis prevention hotline 988. Plan Of Treatment No Information Insurance Providers Payer Name Payer Address Payer Phone Subscriber Number Group Number Insured Name Patient Relationship to Insured Coverage Start Date Coverage End Date [employer] Medicare Replacement/ Advantage - [employer] [address] [place] [address] [id number] MILY FELTON Self - patient is the insured Medical (General) History Medical History History ICD Code Past Psychiatric History: Anxiety Disord er abdominal aortic aneurysm: No atrial fibrillation: No chronic fatigue syndrome: Yes essential tremor: No hyperlipidemia: No hypertension: No Parkinson's disease: No restless leg syndrome: Yes stroke: No subdural hematoma: No type 1 diabetes mellitus: No type 2 diabetes mellitus: No vitamin B12 deficiency: No vitamin D deficiency: No Surgical History Surgery Date(Month/Year) 3 back surgeries. All before 2006
== END 2025-06-18 13:46 | disposition home or self-care (01) ==
PROVIDERS: PCP Family Medicine; Visit Provider Physician Assistant
DX: R22.1 Localized swelling, mass and lump, neck (principal); R06.02 Shortness of breath; I11.9 Hypertensive heart disease without heart failure; I51.89 Other ill-defined heart diseases; I07.1 Rheumatic tricuspid insufficiency; R06.09 Other forms of dyspnea
CPT/HCPCS: 76536; 93306

== ENCOUNTER 2025-06-24 14:10 | Outpatient (CLI) | payer OTHER, SELFPAY ==
--- NOTE | ~2025-06-24 | US_ITS ---
EXAMINATION: US thyroid DATE: 06/24/2025 14:41 INDICATION: Follow-up of finding of thyroid nodules on ultrasound neck. TECHNIQUE: Multiple ultrasound images of the thyroid were obtained. COMPARISON: Ultrasound neck dated 06/18/2025. FINDINGS: The right thyroid lobe measures 3.7 x 1.6 x 1.9 cm cm. The left thyroid lobe measures 2.2 x 1.4 x 2.4 cm cm. Dominant well-circumscribed mildly hyperechoic nodule of the right lobe is noted with well-circumscribed hypoechoic margins. The right thyroid nodule measures 1.8 x 1.5 x 1.6 cm. The nodule is oval in shape without microcalcifications. No other focal thyroid lesions are seen. IMPRESSION: 1. Dominant well-circumscribed hyperechoic nodule as described above of the right lobe measuring 1.8 x 1.5 x 1.6 cm. Probably benign based on morphology. However at this time due to the size of the lesion, the right thyroid nodule is considered indeterminate. Continue follow-up at six-month interval. TI-RADS Category 3, indeterminate lesion for short interval follow-up. Reviewed, dictated and finalized at location T. N DYER IMPRESSION: 1. Dominant well-circumscribed hyperechoic nodule as described above of the rig ht lobe measuring 1.8 x 1.5 x 1.6 cm. Probably benign based on morphology. Lara lamar at this time due to the size of the lesion, the right thyroid nodule is con sidered indeterminate. Continue follow-up at six-month interval. TI-RADS Category 3, indeterminate lesion for short interval follow-up.
== END 2025-06-24 14:11 | disposition home or self-care (01) ==
LOC: GOSHIMG 14:10
PROVIDERS: PCP Family Medicine; Visit Provider Physician Assistant
DX: E04.1 Nontoxic single thyroid nodule (principal)
CPT/HCPCS: 76536